=== PATIENT | male | born 2000 | race Caucasian/White ===

== ENCOUNTER 2019-05-25 23:55 | Emergency (ER) | payer OTHER ==
[2019-05-26] MEDS ORDERED: PANTOPRAZOLE SODIUM 40 MG TABLET.DR PO ONE (00:06)
--- NOTE | 2019-05-26 00:08 | ER Document Report ---
ED Medical Screen (RME) - General Chief Complaint: Vomiting Stated Complaint: VOMITING BLOOD, LIGHTHEADEDNESS Time Seen by Provider: 05/26/19 00:05 Notes: HPI: 18-year-old male presenting for evaluation of blood after an episode of vomiting tonight. Patient states he had been drinking alcohol became nauseated and threw up and at the end of the vomiting episode noticed bright red blood in the vomitus. Denies abdominal pain currently, denies further nausea. Patient was nervous about the blood in the emesis so decided to come in for evaluation. I have greeted and performed a rapid initial assessment of this patient. A comprehensive ED assessment and evaluation of the patient, analysis of test results and completion of the medical decision making process will be conducted by additional ED providers PHYSICAL EXAMINATION: Patient does have a picture of the emesis on his phone which shows some bright red blood with the vomitus. He has no abdominal pain on palpation bowel sounds in all quadrants. Lung sounds are clear to auscultation not significantly tachycardic. - Related Data Allergies/Adverse Reactions: No Known Allergies Allergy (Unverified 05/26/19 00:03) Physical Exam - Vital signs Vitals: Temp Pulse Resp BP Pulse Ox 98.1 F 69 16 125/79 97 05/26/19 00:01 05/26/19 00:01 05/26/19 00:01 05/26/19 00:01 05/26/19 00:01 Course - Vital Signs Vital signs: Temp Pulse Resp BP Pulse Ox 98.1 F 69 16 125/79 97 05/26/19 00:01 05/26/19 00:01 05/26/19 00:01 05/26/19 00:01 05/26/19 00:01
[2019-05-26 00:29] LABS: ABSOLUTE LYMPHOCYTES (AUTO) 2.3 10^3/uL (0.5-4.7); ABSOLUTE MONOCYTES (AUTO) 0.4 10^3/uL (0.1-1.4); ABSOLUTE NEUT (AUTO) 3.3 10^3/uL (1.7-8.2); BASOPHILS % (AUTO) 0.3 % (0-2); EOSINOPHILS % (AUTO) 0.8 % (0-6); HEMATOCRIT 40.7 % (37.9-51.0); HEMOGLOBIN 14.9 g/dL (13.5-17.0); LYMPHOCYTES % (AUTO) 38.1 % (13-45); MEAN CORPUSCULAR HGB CONC 36.6 g/dL (32.0-36.0); MEAN CORPUSCULAR VOLUME 82 fl (80-97); MONOCYTES % (AUTO) 6.1 % (3-13); PLATELET COUNT 309 10^3/uL (150-450); RED BLOOD COUNT 4.97 10^6/uL (4.35-5.55); RED CELL DISTRIBUTION WIDTH 12.2 % (11.5-14.0); SEGMENTED NEUTROPHILS % (AUTO) 54.7 % (42-78); TOTAL CELLS COUNTED % (AUTO) 100 %
[2019-05-26 00:52] LABS: ALBUMIN 5.1 g/dL (3.7-5.6); ALCOHOL 55 mg/dL (NONE DETECTED); ALKALINE PHOSPHATASE 101 U/L (65-260); ANION GAP 12 (5-19); ASPARTATE AMINO TRANSFERASE 19 U/L (10-45); BILIRUBIN,TOTAL 1.2 mg/dL (0.2-1.3); BLOOD UREA NITROGEN 11 mg/dL (7-20); CALCIUM 9.4 mg/dL (8.4-10.2); CARBON DIOXIDE 26 mmol/L (22-30); CHLORIDE 106 mmol/L (98-107); GLUCOSE 87 mg/dL (75-110); POTASSIUM 4.1 mmol/L (3.6-5.0); TOTAL PROTEIN 7.9 g/dL (6.3-8.2)
[2019-05-26 00:55] LABS: INTERNATIONAL RATION (INR) 1.08
--- NOTE | 2019-05-26 01:21 | ER Document Report ---
ED General - General Chief Complaint: Vomiting Stated Complaint: VOMITING BLOOD, LIGHTHEADEDNESS Time Seen by Provider: 05/26/19 00:05 Primary Care Provider: [facility] [Provider Group] - Follow up in 3-5 days Notes: Patient is a 18-year-old male who presents the emergency department with vomiting of blood. Patient states that he was drinking whiskey and lemonade and ended up vomiting 1 time. At the end of his vomitus, he ended up having a small amount of blood at the end of it. Patient states that he was drinking because his grandparents were in town visiting. He denies any fever, body aches, chills, or any other symptoms. Patient states that he feels better after receiving Protonix in triage. Patient states that he has acid reflux, but does not take any medications for it. He occasionally takes Tums. - Related Data Allergies/Adverse Reactions: No Known Allergies Allergy (Unverified 05/26/19 00:03) Past Medical History - General Information source: Patient - Social History Smoking Status: Never Smoker Chew tobacco use (# tins/day): No Frequency of alcohol use: Social Drug Abuse: None Family History: Reviewed & Not Pertinent Patient has suicidal ideation: No Patient has homicidal ideation: No Review of Systems - Review of Systems Notes: REVIEW OF SYSTEMS: CONSTITUTIONAL : Denies recent illness. Denies recent unintentional weight loss. Denies fever, chills, or sweats. EENT: Denies eye, ear, throat, or mouth pain, discharge, or symptoms. Denies nasal or sinus congestion. CARDIOVASCULAR: Denies chest pain. RESPIRATORY: Denies shortness of breath, cough, congestion, difficulty breathing, or wheezing. GASTROINTESTINAL: See HPI. GENITOURINARY: Denies difficulty urinating, burning, blood in urine, urgency or frequency. MUSCULOSKELETAL: Denies neck and back pain. Denies joint pain or swelling. SKIN: Denies rash, itchiness, or lesions HEMATOLOGIC : Denies easy bruising or bleeding. LYMPHATIC: Denies swollen, painful, enlarged glands. NEUROLOGICAL: Denies no numbness or tingling denies weakness. Denies headache. Denies altered mental status. Denies alteration in speech. PSYCHIATRIC: Denies stress, anxiety, alteration in sleep patterns, or depression. All other systems reviewed and negative. Physical Exam - Vital signs Vitals: Temp Pulse Resp BP Pulse Ox 98.1 F 69 16 125/79 97 05/26/19 00:01 05/26/19 00:01 05/26/19 00:01 05/26/19 00:01 05/26/19 00:01 - Notes Notes: PHYSICAL EXAMINATION: GENERAL: Appears well, healthy, well-nourished, no acute distress. HEAD: Normocephalic, atraumatic. EYES: PERRL, conjunctiva normal, all extraocular movements intact, sclera nonicteric ENT: Moist mucous membranes. NECK: Supple, no noticeable swelling, redness, rash. Normal range of motion. LUNGS: Equal breath sounds bilaterally and clear to auscultation. No wheezes rales or rhonchi. CARDIOVASCULAR: S1-S2, regular rate, regular rhythm. Radial pulses 2+, normal. ABDOMEN: Normoactive bowel sounds. Soft, tender left upper quadrant abdomen, no guarding, no rebound tenderness, and no masses palpated. EXTREMITIES: Normal strength and range of motion, no pitting or edema. No cyanosis. NEUROLOGICAL: Moves all extremities upon command. Strength 5/5 in all extremities. PSYCH: Normal mood, normal affect. SKIN: Warm, dry. No rash, lesions, ulcerations noted. Normal skin turgor. Course - Re-evaluation Re-evalutation: 05/26/19 01:21 Patient presents with epigastric abdominal pain with associated reflux symptoms most consistent with likely gastritis. Patient has no focal abdominal tenderness on examination. Right upper quadrant ultrasound does not demonstrate any evidence of acute cholecystitis or cholelithiasis. Lipase is normal. No LFT changes. Based on history and exam, I do not suspect ACS, pulmonary embolus, SBO, mesenteric ischemia, acute pancreatitis, biliary pathology, or an abdominal aortic dissection. Patient has had improvement of symptoms here with a GI cocktail. At this time will discharge with return precautions and follow-up recommendations. Verbal discharge instructions given a the bedside and opportunity for questions given. Medication warnings reviewed. Patient is in agreement with this plan and has verbalized understanding of return precautions and the need for primary care follow-up in the next 24-72 hours. - Vital Signs Vital signs: Temp Pulse Resp BP Pulse Ox 97.7 F 58 L 16 113/88 H 100 05/26/19 01:41 05/26/19 01:41 05/26/19 01:41 05/26/19 01:41 05/26/19 01:41 - Laboratory Result Diagrams: 05/26/19 00:16 05/26/19 00:16 Laboratory results interpreted by me: 05/26/19 00:16 [facility] 36.6 H Discharge - Discharge Clinical Impression: Vomiting Qualifiers: Vomiting type: unspecified Vomiting Intractability: unspecified Nausea p resence: with nausea Qualified Code(s): R11.2 - Nausea with vomiting, unspecified Gastritis Qualifiers: Gastritis type: unspecified gastritis Chronicity: acute Gastritis bleeding: with bleeding Qualified Code(s): K29.01 - Acute gastritis with bleeding Condition: Stable Disposition: HOME, SELF-CARE Additional Instructions: Your symptoms appear to be most consistent with stomach or upper intestinal irritation. Please begin taking famotidine 40 mg in the morning and 40 mg at night. This medicine can be purchased directly [id number], or use the pre scription. Also take Carafate before meals and at bedtime. You may also take medicine such as Pepto-Bismol or Tums to assist with your pain. Please return to emergency department immediately if you have worsening of your pain, shortness of breath, vomiting, become unable to exert yourself due to pain or difficulty breathing, you pass out, or have any pain that radiates into your arms, jaw, or back. Please also return if you have any additional symptoms that are concerning to you. As we have discussed, the most important thing is lifestyle changes. You need to avoid smoking, sodas, tea, coffee, alcohol, spicy foods, and acidic foods such as citrus fruits, tomato based products, berries, and most fruit juices. Prescriptions: Sucralfate [Carafate 1 gm Tablet] 1 gm PO ACHS #60 tablet Famotidine [Pepcid 20 mg Tablet] 40 mg PO BID #60 tablet Referrals: [facility] [Provider Group] - Follow up in 3-5 days
[2019-05-26 01:42] VITALS: BP 113/88
== END 2019-05-26 01:43 | disposition home or self-care (01) ==
LOC: ER 23:55
DX: K29.01 Acute gastritis with bleeding (principal); K92.0 Hematemesis
CPT/HCPCS: 99283; 36415; 80307; 83690; 85025; 85610; 80053; J3490